=== PATIENT | female | born 1980 | race Caucasian/White ===

== ENCOUNTER 2018-07-15 12:33 | Inpatient (IN) | payer OTHER ==
[~2018-07-15] VITALS: Ht 160 cm; Wt 57.9 kg
[~2018-07-15 12:33] MED LIST: ATARAX25 MG PO; CELEXA10 MG PO; DOLOPHINE; FLEXERIL10 MG PO; LEVAQUIN 5500 MG/TAB PO; LIDOCAINE; MIDRIN; MOTRIN 800800 MG/TAB PO; OXYCONTIN10 MG PO; PERCOCET 5/321 UDTAB PO; PERCOCET 650 MG1 TAB PO; PHENERGAN 25 TA25 MG PO; PREDNISONE20 MG PO; VICODIN 5/5001 UDTAB PO
[2018-07-15] MEDS ORDERED: AMOXICILLIN 8751 TAB PO (14:34)
[2018-07-15] MEDS ORDERED: SEPTRA DS 8001 TAB PO (14:34)
[2018-07-15 16:43] LABS: BASO % 0.3 % (0.0-2.0); EOS # 0.1 (0.0-0.7); GRAN # 8.2 (1.4-6.5); GRAN % 68.3 % (42.2-75.2); HEMATOCRIT 38.5 % (37.0-47.0); HEMOGLOBIN 13.1 g/dl (12.5-16.0); LYMPH # 2.4 (1.2-3.4); LYMPH % 19.9 % (20.0-51.0); MEAN CELL VOLUME 95 fl (80.0-100.0); MEAN CORPUSCULAR HEMOGLOBIN 32 pg (27.0-31.0); MEAN CORPUSCULAR HGB CONC 34 g/dl (33.0-37.0); MEAN PLATELET VOLUME 10.9 fl (7.4-10.4); MONO # 1.2 (0.1-0.6); MONO % 9.9 % (1.7-9.3); PLATELET COUNT 238 K/mm3 (130-400); RED BLOOD COUNT 4.07 M/mm3 (4.10-5.30); REDCELL DISTRIBUTION WIDTH-CV 13.6 % (11.5-14.5)
[2018-07-15 16:50] LABS: ALBUMIN 4.2 gm/dL (3.5-5.0); BILIRUBIN,TOTAL 0.5 mg/dL (0.0-1.0); CALCIUM 9.2 mg/dL (8.4-10.2); CREATININE, serum 0.55 mg/dL (0.52-1.25); POTASSIUM 3.7 mmol/L (3.4-5.0); TOTAL PROTEIN 7.4 gm/dL (6.4-8.2)
[2018-07-15] MEDS ORDERED: PREMARIN 0.60.625 M1 PO (18:44)
[2018-07-15] MEDS ORDERED: LYRICA 150MG C150 MG PO (18:44)
[2018-07-15] MEDS ORDERED: ZOLOFT 50MG50 MG PO (18:45)
[2018-07-15 21:19] VITALS: BP 130/65; PULSE 94; TEMP 97.8
[2018-07-16] VITALS (7 sets, daily range): BP systolic 105–128; BP diastolic 54–66; PULSE 77–90; TEMP 97.9–98.5
--- NOTE | 2018-07-16 02:59 | NUR ---
Patient given antibiotics per orders for abscess to left stump, Cefepime and daptomycin. No adverse effects to antibiotic treatment noted at this time, such as rash, vomiting, and diarrhea. Abscess cotninues to have scant drainge, thin and light yellow in color. Stump site is red and warm to touch, with pain and swelling present. Tip of stump is more firm, and sides are soft. Patient took a shower, and reported increased pain afterwards. Given pain medication per PRN orders. Patient has gotten up and walked with crutches around medical floor for exercise. Patient is used to working nights, so patient has been having a hard time sleeping tonight. Has been on phone. Denies having any other needs or concerns. SCD to RLE. Patient has been NPO since midnight, patient is aware and voices understanding that she should not eat or drink anything. NS continues to run at 125 ml/hr to left wrist. Site is without redness, warmth, swelling, and pain. In bed on phone at this time. Call light is within reach.
--- NOTE | 2018-07-16 04:42 | NUR ---
Patient was up ambulating with crutches for a while. Reported that she had a small amount of emesis. Declined wanting PRN nausea medication at this time.
--- NOTE | 2018-07-16 06:34 | NUR ---
IV site quit working to left wrist. Restarted to right forearm. Site is without redness, warmth, swelling, and pain. NS continues at 125 mls/hr. Rates pain to left stump at a 3 at this time. Site continues to have scant yellow, thin drainage. Redness and swelling seems to have increased slightly. Sitting up in recliner at this time watching TV. Call light is within reach. Denies having any questions or concerns at this time.
--- NOTE | 2018-07-16 07:18 | NUR ---
Report given to On-coming nurse. Orthopedic consult called in and notified.
--- NOTE | 2018-07-16 07:35 | NUR ---
PATIENT ASSESSMENT COMPLETED. SHE IS INDEPENDENT IN THE ROOM WITH HER CRUTCHES. PRN DILAUDID IS GIVEN FOR LEG PAIN. LEFT LEG STUMP HAS A LITTLE SWELLING AND DOES HAVE A OPEN AREA THAT IS DRAINING SERO SANG SMALL AMOUNT OF DRAINAGE
[2018-07-16 08:11] LABS: BASO % 0.3 % (0.0-2.0); EOS # 0.1 (0.0-0.7); EOS % 0.9 % (0-4.0); GRAN # 8.9 (1.4-6.5); GRAN % 73.5 % (42.2-75.2); HEMOGLOBIN 11.5 g/dl (12.5-16.0); LYMPH % 16.1 % (20.0-51.0); MEAN CELL VOLUME 95 fl (80.0-100.0); MEAN CORPUSCULAR HEMOGLOBIN 32 pg (27.0-31.0); MEAN CORPUSCULAR HGB CONC 34 g/dl (33.0-37.0); MEAN PLATELET VOLUME 11.1 fl (7.4-10.4); MONO # 1.1 (0.1-0.6); MONO % 8.7 % (1.7-9.3); PLATELET COUNT 231 K/mm3 (130-400); RED BLOOD COUNT 3.58 M/mm3 (4.10-5.30); REDCELL DISTRIBUTION WIDTH-CV 13.5 % (11.5-14.5)
[2018-07-16 08:31] LABS: CALCIUM 8.6 mg/dL (8.4-10.2); CREATININE, serum 0.52 mg/dL (0.52-1.25); POTASSIUM 3.8 mmol/L (3.4-5.0)
--- NOTE | 2018-07-16 10:35 | NUR ---
The patient was a bit upset when I arrived in her room. We talked for some time and I prayed with her. She seemed to be in better spirits when I left.
--- NOTE | 2018-07-16 11:30 | NUR ---
PRN NORCO 2 TABS GIVEN FOR PAIN.
--- NOTE | 2018-07-16 11:40 | NUR ---
PATIENT IS GIVEN IVP DILAUDID FOR HER LEFT LEG AND TERRIBLE HEADACHE. I HAVE ALSO GIVEN HER COFFEE. DR. CHELSEA JOYCE IN TO SEE PATIENT AND HE GIVES THE OK FOR PATIENT TO HAVE A GENERAL DIET.
--- NOTE | 2018-07-16 12:00 | NUR ---
PATIENT LEFT LEG IS ELEVATED AND ICE APPLIED PER DR. JOYCE ORDERS.
--- NOTE | 2018-07-16 12:18 | NUR ---
PATIENT LEFT STUMP IS WRAPPED WITH TELFA, GAUZE AND HELD IN PLACE WITH KERLEX. HEADACHE IS GETTING BETTER. SHE HAS ORDERED LUNCH
--- NOTE | 2018-07-16 14:32 | NUR ---
Plan: Patient plans to return home unless otherwise specified by Dr. Assess: Patient reports that her spouse is Magan [phone]. Patient shares that she resides in and has ambulates with crutches and an othro-leg. PT indicated that she has a wheel chair, and a knee walker. PCP is reported as Dr. Roxane Berkowitz. Has a DPOA and obtains RX from formerly [facility]. Patient reports spouse will transport home. Action: Patient is interested in Nutrition services. Contacted regional environmental manager nutrition and left VM. No additional needs identifed.
--- NOTE | 2018-07-16 14:45 | NUR ---
PATIENT LEFT LEG STUMP IS SWOLLEN AFTER ICING IT. WE CHANGED TO THE DRESSING AND PUT PAPER TAPE AND NOT COBAN. ONLY DROPS OF DRAINAGE SERO SANG ON OLD DRESSING. TOLERATES WELL
--- NOTE | 2018-07-16 15:45 | NUR ---
PRN DILAUDID GIVEN FOR COMPLAINTS OF PAIN
--- NOTE | 2018-07-16 19:10 | NUR ---
PRN NORCO 2 TABS GIVEN AND NEW ICE PACKS GIVEN FOR THE LEFT LOWER LEG.
--- NOTE | 2018-07-16 22:09 | NUR ---
Patient assessed at this time. Rated pain to left stump at a 6. Given PRN Dilaudid per orders. NS running at 125 ml/hr. IV site is without redness, warmth, swelling, and pain. Left stump is red, warm, tender to touch, with edema. Minimal clear yellow drainage continues to abscess site. Elevated while in bed, and ice applied to stump. Notifed of being NPO after midnight, and voices understanding. Denies having any other questions or concerns at this time. Call light is within reach.
[2018-07-17] VITALS (7 sets, daily range): BP systolic 106–130; BP diastolic 54–79; PULSE 80–95; TEMP 98.2–98.4
--- NOTE | 2018-07-17 00:42 | NUR ---
Patient up walking around with crutches. Complains of feeling unable to sleep. Continues to have pain to left stump. Rated pain at a 7. Given 2 [place] per orders at this time. Reminded to be NPO after midnight, and voiced understanding.
--- NOTE | 2018-07-17 04:51 | NUR ---
Patient has been having pain to left stump throughout the night, and given PRN medication as requested. Patient has also been complaining of itching, and given PRN Benadryl . No redness or hives noted. Dressing to left stump changed twice due to dressing comming off. Each time, half dollar size amount of yellow drainge was noted to to the old dressing. Scant active drainage noted to site. Stump continues to have edema, but redness appears to have decreased, as well as warmth. In bed at this time awake. Has been awake most of the night, and gotten up a few times to walk around with crutches. Patient has been having an increase in involuntary spasms to left leg as well. Call light is within reach at this time. Denies having any other needs or concerns at this time.
--- NOTE | 2018-07-17 07:15 | NUR ---
Voices no needs or concerns at this time. Report given to next shift.
--- NOTE | 2018-07-17 07:15 | NUR ---
PATIENT ASSESSMENT COMPLETED SHE WILL BE GOING TO SURGERY THIS MORNING. CONSENT SIGNED FOR SURGERY.
[2018-07-17 07:23] LABS: BASO # 0.1 (0.0-0.2); BASO % 0.6 % (0.0-2.0); EOS # 0.2 (0.0-0.7); EOS % 2.1 % (0-4.0); GRAN # 6.5 (1.4-6.5); GRAN % 62.5 % (42.2-75.2); HEMOGLOBIN 11.5 g/dl (12.5-16.0); LYMPH # 2.7 (1.2-3.4); LYMPH % 26.1 % (20.0-51.0); MEAN CELL VOLUME 97 fl (80.0-100.0); MEAN CORPUSCULAR HEMOGLOBIN 33 pg (27.0-31.0); MEAN CORPUSCULAR HGB CONC 34 g/dl (33.0-37.0); MEAN PLATELET VOLUME 10.7 fl (7.4-10.4); MONO # 0.8 (0.1-0.6); MONO % 8.1 % (1.7-9.3); PLATELET COUNT 251 K/mm3 (130-400); RED BLOOD COUNT 3.53 M/mm3 (4.10-5.30); REDCELL DISTRIBUTION WIDTH-CV 13.7 % (11.5-14.5)
[2018-07-17 07:48] LABS: HEMATOCRIT 34.2 % (37.0-47.0)
[2018-07-17 09:23] LABS: ERYTHROCYTE SEDIMENTATION RATE 22 mm/hr (0-20)
--- NOTE | 2018-07-17 09:45 | NUR ---
PATIENT RETURNS TO ROOM 352. SHE IS ALERT AND DROWSY. PATIENT AT BEDSIDE. THEY ARE INFORMED THAT SHE NEEDS TO CALL TO GET UP OUT OF BED TO GO TO THE RESTROOM. THEY VERBALIZE UNDERSTANDING. IVF CHANGED PER ORDERS. SHE STATES THAT SHE IS NOT HAVING ANY PAIN THE LEG BLOCK IS WORKING WELL.
--- NOTE | 2018-07-17 10:30 | NUR ---
PATIENT IS ASSISTED TO THE RESTROOM SHE IS ALITTLE UNSTEADY ON HER CRUTCHES. TOLERATES WELL. DENIES FURTHER NEED FOR PAIN MEDICATIONS.
--- NOTE | 2018-07-17 18:44 | NUR ---
PATIENT REPORTS THE TINGLING IN THE LEFT LEG. AND STARTING TO HAVE SOME SHARP STABBING PAIN PRN DILAUDID IVP
--- NOTE | 2018-07-17 18:45 | NUR ---
BULB DRAINAGE 10CC OF BLOODY DRAINAGE REMOVED. SUCTION REAPPLIED
--- NOTE | 2018-07-17 20:55 | NUR ---
Shift assessment complete. Pt resting in bed, awake, a&o, cooperative c cares. 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 Pt denies any other c/o. Ortho sx dressing noted to LLE BKA stump, dressing C/D/I c bulb suction in place s complication. Pt amb c crutches et steady gait in halls. INT patent. Pt denies further needs. Call light in reach, will monitor.
[2018-07-18 03:08] VITALS: BP 117/64; PULSE 93; TEMP 98.5
[2018-07-18 06:29] LABS: HEMOGLOBIN 10.5 g/dl (12.5-16.0)
[2018-07-18 06:31] LABS: HEMATOCRIT 31.3 % (37.0-47.0)
--- NOTE | 2018-07-18 07:06 | NUR ---
Pt resting in bed, condition unchanged. 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 Pain well controlled c PRN meds upon request. MAMADOU drain s complication. Pt denies further needs. Call light in reach. Bedside shift report given to Glenn MONTALVO to assume pt cares.
[2018-07-18 07:24] VITALS: BP 112/61; PULSE 78; TEMP 98.3
--- NOTE | 2018-07-18 08:08 | NUR ---
Patient resting at this time. Left leg elevated on pillow with dressing CDI. Ice to leg as per orders. Patient is alert and oriented x 3. Voices c/o pain. Is alternating Diludid IV with PO pain medication. Patient has no needs at this time.
--- NOTE | 2018-07-18 08:32 | NUR ---
Dressing to left limb is CDI. MAMADOU drain with minimal red fluid.
[2018-07-18 08:45] LABS: BASO % 0.1 % (0.0-2.0); EOS % 0.1 % (0-4.0); GRAN # 10.8 (1.4-6.5); GRAN % 74.1 % (42.2-75.2); HEMOGLOBIN 10.7 g/dl (12.5-16.0); LYMPH # 2.5 (1.2-3.4); LYMPH % 17.2 % (20.0-51.0); MEAN CELL VOLUME 97 fl (80.0-100.0); MEAN CORPUSCULAR HEMOGLOBIN 33 pg (27.0-31.0); MEAN CORPUSCULAR HGB CONC 34 g/dl (33.0-37.0); MEAN PLATELET VOLUME 11.3 fl (7.4-10.4); MONO # 1.2 (0.1-0.6); PLATELET COUNT 235 K/mm3 (130-400); RED BLOOD COUNT 3.23 M/mm3 (4.10-5.30); REDCELL DISTRIBUTION WIDTH-CV 13.4 % (11.5-14.5)
[2018-07-18 08:46] LABS: HEMATOCRIT 31.2 % (37.0-47.0)
[2018-07-18 09:04] LABS: CREATININE, serum 0.77 mg/dL (0.52-1.25); POTASSIUM 3.8 mmol/L (3.4-5.0)
[2018-07-18 12:19] VITALS: BP 105/52; PULSE 87; TEMP 98.3
--- NOTE | 2018-07-18 12:30 | NUR ---
Patient verbalizes that her stump is waking up from surgery, It is tingling in nature; with slight burning. Patient has stump elevated. Offered and patient refused ice packs at this time. She states pain is becoming unbearable and requesting and recieved her oral & IV pain medication together.
[2018-07-18 16:59] VITALS: BP 104/61; PULSE 76; TEMP 98.1
--- NOTE | 2018-07-18 18:54 | NUR ---
Patient has rested throughout the day. States that since the air has been fixed in room she feels so much better. Patient has recieved pain medication throughout the day per request. Stump has remained unchanged. MAMADOU drain has approx 15 cc of red colored fluid.
[2018-07-18 21:54] VITALS: BP 108/64; PULSE 73; TEMP 97.3
--- NOTE | 2018-07-18 22:00 | NUR ---
PT INFORMED THIS NURSE THAT SHE IS WANTING TO TALK WITH ORTHO PRIOR TO DISCHARGE. PT REMAINS IN PAIN IN LT LOWER EXTREM, PAIN MEDS GIVEN AVALIBLE. PT STATED THAT SHE WANTS WOKE UP DURING NOC IF SLEEPING FOR PAIN MEDS TO STAY ON TOP OF PAIN. PT REQUESTED SOMETHING FOR SLEEP, THIS NURSE OBTAINED AN ORDER FOR MELATONIN, ADMINSTERED MED. PT RECIEVED IV ABX WITHOUT ISSUE. MAMADOU DRAIN IN PLACE WITH MINIMAL RED COLORED DRAINAGE NOTED AT THIS TIME. ASUNCION WRAP IN LT STUMP, DRY AND INTACT. NO OTHER ISSUES OR CONSERNS VOICED AT THIS TIME. HAS BEEN PLEASENT AND COOPERATIVE WITH CARES.
--- NOTE | 2018-07-19 01:00 | NUR ---
PT REQUESTED PRN MILK OF MAGNESIA DUE TO NO BM SINCE ADMISSION. PT ALSO TOOK MELATONIN AT THIS TIME.
[2018-07-19 01:27] VITALS: BP 154/71; PULSE 63; TEMP 96.7
--- NOTE | 2018-07-19 03:50 | NUR ---
THIS NURSE TOOK PT PAIN PILL, REQUESTED BY PT FOR THIS NURSE TO WAKE UP PT, WAS SLEEPING AT THIS TIME. STATED SHE HOPE TO GET MORE SLEEP AT THE TIME.
[2018-07-19 04:00] VITALS: BP 111/49; PULSE 80; TEMP 97.8
--- NOTE | 2018-07-19 07:00 | NUR ---
PT STATED SHE WAS ABLE TO GET SOME SLEEP AND VOICED THAT SHE PLANNED ON TRYING TO GET BACK TO SLEEP. SOME SWELLING TO TOP TO LT LEG ABOVE STUMP AD ABOVE KNEE APPEARED TO HAVE DEMINISHED THIS AM. ICE WAS APPLIED TO AREA OVER NOC. NO ISSUES OR CONSERNS VOICED AT THIS TIME.
[2018-07-19 07:35] LABS: BASO # 0.1 (0.0-0.2); BASO % 0.6 % (0.0-2.0); EOS # 0.2 (0.0-0.7); EOS % 2.3 % (0-4.0); GRAN # 4.9 (1.4-6.5); GRAN % 46.6 % (42.2-75.2); HEMATOCRIT 34.1 % (37.0-47.0); HEMOGLOBIN 11.5 g/dl (12.5-16.0); LYMPH # 4.5 (1.2-3.4); LYMPH % 43.2 % (20.0-51.0); MEAN CELL VOLUME 97 fl (80.0-100.0); MEAN CORPUSCULAR HEMOGLOBIN 33 pg (27.0-31.0); MEAN CORPUSCULAR HGB CONC 34 g/dl (33.0-37.0); MEAN PLATELET VOLUME 10.6 fl (7.4-10.4); MONO # 0.7 (0.1-0.6); MONO % 6.8 % (1.7-9.3); PLATELET COUNT 268 K/mm3 (130-400); RED BLOOD COUNT 3.53 M/mm3 (4.10-5.30); REDCELL DISTRIBUTION WIDTH-CV 13.7 % (11.5-14.5)
[2018-07-19] MEDS ORDERED: ASPI325T6 PO (07:57)
[2018-07-19 08:00] VITALS: BP 130/59; PULSE 79; TEMP 97.8
[2018-07-19 12:53] VITALS: BP 100/44; PULSE 92; TEMP 98.2
[2018-07-19] MEDS ORDERED: SEPTRA DS 8001 TAB PO (13:57)
--- NOTE | 2018-07-19 14:39 | NUR ---
DISCHARGE INSTRUCTIONS REVIEWED WITH PATIENT. PT VERBALIZES UNDERSTANDING. IV DISCONINTUED. PT AWAITING TO COME PICK HER UP.
--- NOTE | 2018-07-19 16:15 | NUR ---
PT ESCORTED TO ELEVATOR WITH AND SON AT PT'S SIDE. PT DISCHARGED WITH ALL HER BELONGINGS.
== END 2018-07-19 16:15 | disposition home or self-care (01) | DRG 478 ==
LOC: COL.ER 12:33 → MEDICAL 17:55
PROVIDERS: Emergency Medicine; Nurse Practitioner; Nurse Practitioner Family; Orthopaedic Surgery; ADMIT Internal Medicine
PROC: 0QBH0ZX Excision of Left Tibia, Open Approach, Diagnostic (ICD-10-PCS; 2018-07-17)
PROC: 0QDH0ZZ Extraction of Left Tibia, Open Approach (ICD-10-PCS; principal; 2018-07-17 08:30)
DX: T87.89 Other complications of amputation stump (principal); L03.116 Cellulitis of left lower limb; Z89.512 Acquired absence of left leg below knee; F17.210 Nicotine dependence, cigarettes, uncomplicated; F32.9 Major depressive disorder, single episode, unspecified
CPT/HCPCS: OP; 99233-AI; 99239; A9585; G0378; J0692; J0878; J1100; J1170; J2250; J2405; J2704; J3010; J7030